=== PATIENT | male | born 1960 | race Caucasian/White ===

== ENCOUNTER → 2019-06-11 | Day surgery (SDC) | payer BC ==
[~2019-06-11] VITALS: Ht 185.4 cm; Wt 145.0 kg
[~2019-06-11] MED LIST: ALLO100T PO; ASPI81TA52 PO; ATOR10TA87 PO; COLE3.75 PO; DAPA10TA PO; FLU VACC QS 2019-20 (6 MOS UP) 60 MCG/0.5 ML VIAL IMVAC ONE; GLIM4TAB7 PO; LIDOcaine 1% (10mg/ml)w/preservative injection 20ml MDV ONE; LORazepam 0.5 MG tablet PO PRN; METF500T PO; MULT-955 PO; SAXA5TAB PO; diphenhydrAMINE 25mg capsule PO PRN; fentaNYL/PF 50MCG/1 ML 2ML syringe ONE; heparin 1,000unit/ml 10ml vial 10 ML ONE; iohexol 350MG/ML 100ml bottle IV ONE; midazolam 2 mg/2 ml injection ONE; nitroGLYCERIN-Tridil 50MG/D5W 250 ML IV ONE; normal saline 1,000 ML IV SCH; verapamil 2.5 mg/ml inj IV ONE
[2019-06-11 15:30] VITALS: BP 123/71
--- NOTE | 2019-06-11 21:50 | NUR ---
Patient came to our unit from short stay. Discharge at 2144. The patient had a hearth cath through the right radial access. the pressure band is removed. pressure dressing put on and informed the patient and not to remove the pressure dressing for 24 hours, and watch for any numbness or tingling sensation on the right arm. The patient is alert, oriented x4. Removed the IV access from his left forearm. patient will be going on wheel chair with nursing stuff and family member to the parking lot. All the questions were answered. 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
--- NOTE | 2019-06-11 22:09 | NUR ---
patient discharged at 2200. He was alert, oriented x4. not on any kind of pain, the radial approach site is clean, dry, intact. The was alongside with him. All questions were answered, and discharge papers were handed to the patient.
== END | disposition home or self-care (01) ==
LOC: SSTAY O 15:08
PROVIDERS: ATTEND Internal Medicine Interventional Cardiology
DX: R94.39 Abnormal result of other cardiovascular function study (principal); R06.02 Shortness of breath; I25.10 Atherosclerotic heart disease of native coronary artery without angina pectoris; E11.9 Type 2 diabetes mellitus without complications; E78.5 Hyperlipidemia, unspecified; I11.0 Hypertensive heart disease with heart failure; I50.9 Heart failure, unspecified; M10.9 Gout, unspecified; E66.9 Obesity, unspecified; Z68.41 Body mass index [BMI] 40.0-44.9, adult; Z79.899 Other long term (current) drug therapy; Z79.84 Long term (current) use of oral hypoglycemic drugs; Z79.82 Long term (current) use of aspirin; Z88.0 Allergy status to penicillin; Z88.7 Allergy status to serum and vaccine; Z23 Encounter for immunization
CPT/HCPCS: 82948; 90471; 93005; 93454; C1894; J1644; J2001; J2250; J3010; J7030; Q0163; Q2037; Q9967; 99152; 99153; A4620; A5120; J3490